=== PATIENT | male | born 1965 | race Caucasian/White ===

== ENCOUNTER 2016-07-26 13:23 | Emergency (ER) | payer OTHER ==
[~2016-07-26] VITALS: Ht 182.9 cm; Wt 145.4 kg
[2016-07-26 13:26] VITALS: BP 138/82; PULSE 74; RESP 15; O2SAT 96
--- NOTE | 2016-07-26 13:52 | ED.REPORT ---
HPI-Abd Pain M 40 and Over Date of Service July 26, 2016 ED Provider: Eula Flores MD The patient is a 52 year old male with history of a hernia, diabetes mellitus, GERD, high cholesterol, hypertension, and asthma, who presents to the emergency department complaining of diffuse abdominal pain. The patient has a known umbilical hernia that "pops out" intermittently. The hernia reduced 2 days ago but there is a "smaller bulge" that is very painful. He has also experienced difficulty defecating, constipation, nausea, vomiting with clear emesis, decreased appetite, and a cough. He was recently evaluated for bronchitis. Nursing Notes Stated Complaint: STOMACH PAIN AFTER HERNIA RETRACTED Chief Complaint: Male Abdominal Pain Nursing Notes Reviewed: Yes Allergies: Coded Allergies: trazodone (Unverified Adverse Reaction, Intermediate, highly agitated, 07/26) Scheduled PRN oxyCODONE-Acetaminophen 5-325 mg (oxyCODONE-Acetaminophen 5-325 mg) 1 Each Tablet 1-2 TAB PO Q6H PRN PRN For Pain General Time Seen by MD: 13:45 Chief Complaint Abdominal pain Hx Obtained From: Patient Arrived By: Walk-in Sudden in Onset?: No Onset Occurred: 2 days ago Symptom Duration: Since onset Progression since Onset: Constant Location: : Diffuse Quality: Painful Severity: Current: Moderate Severity: Maximum: Severe Recent Healthcare: No recent hospitalization, Recent doctor visit Similar Sx Previous: No Past Medical History Past Medical History Hernia Hypertension High cholesterol Diabetes mellitus Asthma GERD Past Surgical History Heart surgery as an Family History Noncontributory Smoking History Former Smoker Social History History of THC use Alcohol Use: Denies alcohol use Other Social History: , Local resident Ambulatory Status Independent Review of Systems Review of Systems Note: +difficulty defecating Respiratory: Reports: Non-productive cough GI: Reports: Abdominal pain, Anorexia, Constipation, Nausea, Vomiting, Denies: Rectal pain Complete sys rev & neg: except as marked. Physical Exam Initial Vital Signs Vital Signs (First) Date Time Temp Pulse Resp B/P Pulse Ox O2 Delivery O2 Flow Rate FiO2 07/26/16 13:26 36.4 74 15 138/82 96 07/26/16 16:05 Room Air Initial VS: Reviewed Head / Eyes: Atraumatic, Normocephalic, PERRL ENT: Mucous membranes moist, Conjunctiva normal, No scleral icterus Neck: Supple, Non-tender, Full range of motion Lymphatic: No lymphadenopathy Extremities: Vascular intact, Neuro intact, No swelling, No tenderness Skin: Warm, Dry, No cyanosis Neurologic: Alert, Oriented, Nonfocal Psychiatric: Mood/affect normal, Behavior normal, Normal thought content General/Constitutional: Awake, Alert Respiratory / Chest: Atraumatic, Breath sounds NL, Breath sounds = bilat, No respiratory distress, No rales, No rhonchi, No wheezing Cardiovascular: Heart rate NL, Regular rhythm, Heart sounds NL, No gallop, No murmurs, No rubs, Peripheral circulation NL Abdomen: Soft, McBurney's non-tender, No guarding, No rebound, BS normoactive, No distention, No palpable mass, No pulsatile mass He has a suprapubic umbilical hernia that is about 6x8 cm in size. The hernia is firm and quite tender to the touch. No rebound or guarding. Back: Inspection NL, Non-tender, No midline vertebral tend, No CVA tenderness Lower Extremity / Pelvis / MS: Neurologic intact, Vascular intact, No edema Interpretation & Diagnostics Lab Results Interpretation Result Diagram: 07/26/16 1420 07/26/16 1420 Test 07/26/16 14:20 07/26/16 17:51 White Blood Count 14.2th/mm3 (3.8-10.1) Red Blood Count 4.13mil/mm3 (4.40-5.80) Hemoglobin 12.6g/dL (13.8-17.2) Hematocrit 38.4% (41.0-50.0) Mean Corpuscular Volume 93.0fL (81-100) Mean Corpuscular Hemoglobin 30.5pg (27.0-35.0) Mean Corpuscular Hemoglobin Concent 32.8% (32.0-37.0) Red Cell Distribution Width 15.2% (12.3-15.4) Platelet Count 344bil/L (150-400) Neutrophils (%) (Auto) 73.2% (40-74) Lymphocytes (%) (Auto) 20.0% (14-46) Monocytes (%) (Auto) 5.7% (4-12) Eosinophils (%) (Auto) 0.6% (0-5) Basophils (%) (Auto) 0.1% (0-3) Sodium Level 139mEq/L (134-144) Potassium Level 3.9mEq/L (3.5-5.2) Chloride Level 103mEq/L (97-108) Carbon Dioxide Level 24mmol/L (18-29) Blood Urea Nitrogen 11mg/dL (6-24) Creatinine 0.76mg/dL (0.76-1.27) Estimat Glomerular Filtration Rate 115mL/min (>59) Glucose Level 102mg/dL (60-99) Calcium Level 8.5mg/dL (8.5-10.1) Magnesium Level 2.0mg/dL (1.6-2.6) Total Bilirubin 1.1mg/dL (0.0-1.2) Aspartate Amino Transf (AST/SGOT) 25U/L (0-50) Alanine Aminotransferase (ALT/SGPT) 67U/L (0-44) Alkaline Phosphatase 98U/L (25-150) Total Protein 7.1g/dL (6.4-8.4) Albumin 3.6g/dL (3.4-5.0) Lipase 24U/L (13-60) Hold Miranda Top Tube Received (Received) Hold Urine Received (Received) Lab Results Interpretation: [facility]. Chronically elevated WBC is noted ECG Interpretation Time: 14:23 Interpreted by: ED physician Normal ECG Interpretation: Normal rate, Normal sinus rhythm, No acute ischemic changes, Normal QRS, Normal axis, Normal intervals, Adequate tracing CT Abd / Pelvis Interpretation IMPRESSION: 1. Moderate-sized fat containing periumbilical hernia. Mild edema within the fat within this hernia is suggestive of an acute inflammatory process. 2. No bowel extends into the hernia. There is no bowel obstruction. 3. Free fluid within the abdomen is of uncertain origin. There is no abscess. 4. Small fat containing right inguinal hernia. 5. Small bilateral effusions and associated atelectasis. 6. Hepatic steatosis. 7. Left common iliac to common femoral artery bypass graft appears patent. Dictated by: Henok Reed M.D. on 07/26/2016 at 14:32 Study type: Abdominal CT IV contrast Interpretation / Wet Read by: Interpret - Radiologist Re-Eval/Medical Decision Med Decision/Clinical Course The patient has history of chronically elevated WBCs. Source of Hx: Old records Time of Eval: 16:14 Re-Evaluation/Progress Note: Rechecked the patient. Discussed CT results and plan for surgery consult. Time of Eval: 17:46 Re-Evaluation/Progress Note: Rechecked the patient. Discussed surgery consult with the patient. Discussed options with the patient. He would like to be discharged home and [facility] Consultation #1: Referral / Consult Name: Gonzalo Hussein MD Consulted With: Surgeon Requested Call at: 15:56 Call Returned at: 16:03 Academic Support Director: Will see patient Note: Dr. Hussein just scrubbed in for surgery and will be down around 1700 to see the patient. Consultation #2: Referral / Consult Name: Gonzalo Hussein MD Consulted With: Surgeon Call Returned at: 17:14 Note: Dr. Hussein is out of surgery and will come down and re-evaluate the patient. It will still be about another 45 minutes until he is able to come down. Consultation #3: Consulted With: Surgeon Call Returned at: 18:11 Academic Support Director: Agrees with plan Note: In ER to physically evaluate patient. Reviewed CT previously Counseled Regarding: Diagnosis, Lab results, Need for follow-up, When/why to return to ED Discharge & Departure Primary Impression: Periumbilical hernia Additional Impressions: Fat necrosis Leukocytosis Leukocytosis type: other Qualified Code: D72.828 - Other elevated white blood cell count Disposition: Home Vital Signs - All Vital Signs Date Time Temp Pulse Resp B/P Pulse Ox O2 Delivery O2 Flow Rate FiO2 07/26/16 16:05 74 18 134/77 98 Room Air 07/26/16 13:26 36.4 74 15 138/82 96 )( All Prior VS Reviewed: Yes Condition: Stable Additional Instructions: Thank you for entrusting us with your care today. Your diagnosis today is fat necrosis of an umbilical hernia. Use the Percocet as needed for your pain. Improving your pain should help with your sleep. I recommend taking 2 when you get home tonight. Do not drink alcohol, drive, or work while taking the pain medication. With all narcotics you can become constipated. Make sure to drink plenty of fluids and eat a high fiber diet. Tomorrow [facility] follow[facility] with a [facility]. We have given you a copy of your visit today along with your lab and imaging results. Please return for increased pain, fever, vomiting, or any other new or concerning symptoms. Referrals: [facility] Bowers (PCP) Scribe Attestation Portions of this note were transcribed by Rani Deng. I, Dr. Flores personally performed the history, physical exam and medical decision-making; I reviewed and confirmed the accuracy of the information in the transcribed note. Signed by: Mark Lee, 07/26/2016 at 1800. copies to: [facility] Shawna L MD July 26, 2016 13:52 Rani Deng July 26, 2016 14:00
[2016-07-26] MEDS ORDERED: 0.9% Sodium Chloride 1,000 ML IV ONE (14:03)
[2016-07-26] MEDS ORDERED: HYDROmorphone 0.5 mg/0.5 mL iSecure Syringe IVPUSH PRN (14:05)
[2016-07-26] MEDS ORDERED: Ondansetron 2 mg/mL 2 mL Inj IVPUSH PRN (14:05)
[2016-07-26 14:30] LABS: BASOPHILS % (AUTO) 0.1 % (0-3); EOSINOPHILS % (AUTO) 0.6 % (0-5); MONOCYTES % (AUTO) 5.7 % (4-12); Mean Corpuscular Hemoglobin 30.5 pg (27.0-35.0); NEUTROPHILS % (AUTO) 73.2 % (40-74); Platelet Count 344 bil/L (150-400)
--- NOTE | 2016-07-26 15:39 | DRSVH ---
PROCEDURE: CT ABDOMEN AND PELVIS WITH CONTRAST ([id number]) INDICATIONS: abdominal pain, TECHNIQUE: After the administration of oral and intravenous contrast, 5 mm thick sections acquired from the diap hragms to the symphysis. 5 mm thick coronal and sagittal reformats were performed. For radiation do se reduction, the following was used: automated exposure control, adjustment of mA and/or kV accordi ng to patient size. COMPARISON: None. FINDINGS: Image quality: Diagnostic. ABDOMEN: Lung bases: Small bilateral pleural effusions are present (right greater than left) with correspondin g mild basilar atelectasis. The heart is normal in size without a pericardial effusion. Solid organs: The liver is normal in size and noted to be hypodense when compared to the spleen, sugg esting hepatic steatosis. No focal liver lesions are evident. Gallbladder is normal in size. Bilia ry system is non-dilated. Pancreas enhances normally. No adrenal nodules. Kidneys are normal in si ze and enhancement, without hydronephrosis. Peritoneum and bowel: The stomach, duodenum, and remainder of the small bowel loops are nondilated. There is no bowel obstruction. A small amount of free fluid is seen within the abdomen, best appreci ated within the bilateral paracolic gutters (right slightly greater than left). No loculated fluid c ollections are present. No pneumoperitoneum is appreciated. There is a moderate-sized periumbilical fat-containing hernia. Small amount of fluid is extending into this hernia. There is mild correspo nding edema within the fat within the hernia Nodes and vessels: No retroperitoneal or mesenteric adenopathy. Aorta and inferior vena cava are no rmal in caliber. Bones: Age-appropriate degenerative postoperative changes of the left iliac artery are present relate d to an external iliac artery bypass graft. The proximal anastomosis of the graft is at the common l eft iliac artery and extends to the distal common femoral artery near the bifurcation. The graft gabriela ears to be patent. changes of the imaged thoracolumbar spine are present. No acute fractures or estee picious osseous lesions are evident. PELVIS: Genitourinary: Bladder wall thickness is normal. The prostate is not enlarged. Miscellaneous: There is a small right ankle hernia. No significant left in the hernias present. The re is no pelvic lymphadenopathy. A small amount of free fluid is seen within the pelvis. There is n o loculated fluid collection. No free air is evident. Bones: No suspicious bony lesions. No vertebral body compression fractures. IMPRESSION: 1. Moderate-sized fat containing periumbilical hernia. Mild edema within the fat within this hernia is suggestive of an acute inflammatory process. 2. No bowel extends into the hernia. There is no bowel obstruction. 3. Free fluid within the abdomen is of uncertain origin. There is no abscess. 4. Small fat containing right inguinal hernia. 5. Small bilateral effusions and associated atelectasis. 6. Hepatic steatosis. 7. Left common iliac to common femoral artery bypass graft appears patent. Dictated by: Henok Reed M.D. on 07/26/2016 at 14:32 Approved by: Henok Reed M.D. on 07/26/2016 at 14:37
[2016-07-26 16:05] VITALS: BP 134/77; PULSE 74; RESP 18; O2SAT 98
[2016-07-26] MEDS ORDERED: OXYC1TAB24 PO (18:10)
[2016-07-26 18:20] VITALS: BP 138/92; PULSE 76; RESP 15; O2SAT 95
== END 2016-07-26 18:15 | disposition home or self-care (01) ==
LOC: SED 13:23 → EDUNIT# 13:23 → SED 18:15
DX: K42.9 Umbilical hernia without obstruction or gangrene (principal); K65.4 Sclerosing mesenteritis; D72.828 Other elevated white blood cell count; I10 Essential (primary) hypertension; E11.9 Type 2 diabetes mellitus without complications; K21.9 Gastro-esophageal reflux disease without esophagitis; Z87.891 Personal history of nicotine dependence; Z88.8 Allergy status to other drugs, medicaments and biological substances
CPT/HCPCS: 36415; 74177; 80053; 82948; 83690; 83735; 85025; 93005; 96361; 96374; 99285; J2405; J7030; Q9967

== ENCOUNTER 2016-08-18 11:56 | Emergency (ER) | payer OTHER ==
[~2016-08-18] VITALS: Ht 182.9 cm; Wt 147.7 kg
[~2016-08-18 11:56] MED LIST: OXYC1TAB24 PO
[2016-08-18 11:57] VITALS: BP 156/99; PULSE 70; RESP 16; O2SAT 96
--- NOTE | 2016-08-18 12:03 | ED.REPORT ---
HPI-Abd Pain M Under 40 Date of Service August 18, 2016 ED Provider: The patient is a 51 year old male with history of a known hernia, GERD, hypertension, hyperlipidemia, diabetes mellitus, and asthma, who presents to the emergency department complaining of diffuse abdominal pain that has been ongoing over the last few weeks. His pain is exacerbated with movement. He also complains of severe nausea and difficulty breathing. The patient was seen previously on 07/26/16 (approx 2 weeks ago) with the same complaint. At that time he had a CT scan of his abdomen and pelvis that showed: (a moderate sized fat containing periumbilical hernia with evidence of inflammatory process within the hernia. No bowel was noted to be in the hernia. No bowel obstruction. He had free fluid in abdomen of uncertain origin. He had a small fat containing right inguinal hernia. Small bilateral effusions and associated atelectasis. Hepatic steatosis. Left common iliac to common femoral artery bypass graft appears patent.) During that visit he was evaluated by Dr. Hussein, diagnosed with umbilical hernia with fat necrosis, he was prescribed pain mediations and advised to followup with the [facility]. The patient has an appointment with surgery on August 24. His pain is unchanged from when he was previously seen. The only thing that has changed is that he has experienced difficulty breathing over the last 1.5 weeks that is related to his asthma. He is unable to lay flat due to his breathing. When changing position or exerting himself he notices increased work of breathing. He has also noticed a dry cough and wheeze. He has been using his inhaler with some relief. He has noticed about 15-20 weight gain in the last few weeks. He was on antibiotics and steroids for bronchitis about 1 month ago. He denies fever, chills or productive cough. He denies recent long periods of immobilization. Nursing Notes Stated Complaint: HERNIA Chief Complaint: Male Abdominal Pain Nursing Notes Reviewed: Yes Allergies: Coded Allergies: trazodone (Unverified Adverse Reaction, Intermediate, highly agitated, ) Scheduled Levofloxacin (Levofloxacin) 750 Mg Tablet 750 MG PO DAILY Polyethylene Glycol 3350 (Miralax) 17 Gm Powd.pack 17 GM PO DAILY Prednisone (PredniSONE) 20 Mg Tablet 40 MG PO DAILY Scheduled PRN Oxycodone (Roxicodone) 5 Mg Tablet 5 MG PO Q4H PRN PRN For Pain oxyCODONE-Acetaminophen 5-325 mg (oxyCODONE-Acetaminophen 5-325 mg) 1 Each Tablet 1-2 TAB PO Q6H PRN PRN For Pain General Time Seen by MD: 12:02 Chief Complaint Abdominal pain Hx Obtained From: Patient Arrived By: Walk-in Sudden in Onset?: No Onset Occurred: More than a week ago... Symptom Duration: Since onset Progression since Onset: Constant Location: : Diffuse Quality: Painful Severity: Current: Moderate Severity: Maximum: Severe Associated with: Reports: Nausea, Shortness of breath Pertinent Negative: Pt denies other symptoms Recent Healthcare: No recent hospitalization, Recent doctor visit, Prior workup Similar Sx Previous: Yes Past Medical History Past Medical History Hernia Hypertension High cholesterol Diabetes mellitus Asthma GERD Past Surgical History Heart surgery as an Family History Noncontributory Smoking History Former Smoker Social History History of THC use Alcohol Use: Denies alcohol use Other Social History: , Local resident Ambulatory Status Independent Review of Systems Review of Systems Note: +weight gain Constitutional: Denies: Chills, Fever Respiratory: Reports: Dyspnea on exertion, Non-productive cough, Shortness of breath, Wheezing, Denies: Prod cough, bloody, Prod cough, brown, Prod cough, clear, Prod cough , green, Prod cough, white, Prod cough, yellow GI: Reports: Abdominal pain, Nausea Complete sys rev & neg: except as marked. Physical Exam Initial Vital Signs Vital Signs (First) Date Time Temp Pulse Resp B/P Pulse Ox O2 Delivery O2 Flow Rate FiO2 08/18/16 11:57 36.8 70 16 156/99 96 Room Air Initial VS: Reviewed Head / Eyes: Atraumatic, Normocephalic, PERRL Neck: Supple, Non-tender, Full range of motion Extremities: Vascular intact, Neuro intact, No swelling, No tenderness Skin: Warm, Dry, No cyanosis Neurologic: Alert, Oriented, Nonfocal Psychiatric: Mood/affect normal, Behavior normal, Normal thought content General/Constitutional: Awake, Alert, Cooperative Respiratory / Chest: Breath sounds = bilat, No respiratory distress, No rales, No rhonchi Well healed midline surgical incision about his anterior chest. Prolonged expiratory phase with scattered wheezing. Cardiovascular: Heart rate NL, Regular rhythm, Heart sounds NL, No gallop, No murmurs, No rubs, Peripheral circulation NL Abdomen: Soft, No guarding, No rebound, BS normoactive, No distention Palpable and reducible umbilical hernia. Back: Inspection NL, Non-tender, No CVA tenderness ENT: Airway patent Mouth: Positive: Mucous membranes dry Lower Extremity / Pelvis / MS: No deformity, Neurologic intact, Vascular intact , No edema No calf swelling or tenderness. Interpretation & Diagnostics X-Ray Chest Interpretation Chest Xray Interpretation: IMPRESSION: Bilateral lower lobe pneumonia, and small bilateral pleural effusions with adjacent atelectasis. Recommend continued radiographic followup to document resolution after treatment and exclude neoplasm Dictated by: Ayan Escobar M.D. on 08/18/2016 at 13:19 Interpretation / Wet Read by: Interpret - Radiologist Re-Eval/Medical Decision Med Decision/Clinical Course The patient is a 51-year-old male with known umbilical hernia who was previously evaluated in this emergency department on 07/26/2016 who presents to the emergency department after being sent here by nurse practitioner with concern for possible small bowel obstruction. Of note, the patient states that his only concern is getting some more pain medication as he has run out and will not be seeing his surgeon [facility] the [facility] for several more days. Incidentally, he complains that he is having increasing wheezing lately and mild shortness of breath, especially when he lays flat. He feels that he is having an exacerbation of his underlying asthma and admits that he has been gaining quite a bit of weight lately as he has not been as active. Notably, he is having bowel movements, passing flatus with no increasing abdominal distention and his hernia remains easily reducible. Here in the emergency department and he is afebrile with stable vital signs and in no apparent distress. His abdominal examination is completely benign and based upon his clinical presentation and history I have very low suspicion for small bowel obstruction. While nurse practitioner noted that he had decreased bowel sounds overall clinical picture is not consistent with small bowel obstruction. My suspicion is that his decreased bowel sounds are probably due to the fact that he is taking narcotic pain medications. See no indication at this time to obtain repeat laboratory testing or CT scan of the abdomen/pelvis. He is tolerating PO and explicitly states that he has had no change in the symptoms related to his hernia or his abdominal pain. Examination does reveal scattered expiratory wheezing and I suspect that he is experiencing exacerbation of his asthma. He was treated with [id number] DuoNeb and 40 mg of IV prednisone with good effect. He is also had quite a bit of weight gain recently and is morbidly obese with history of obstructive sleep apnea. I suspect that he is expressing some degree of obesity-related hypoventilation syndrome as he reports that his shortness of breath is worse when he lays flat on his back. Pt would probably benefit from losing weight. Of note, his x-ray did show bibasilar pneumonia though this does not seem to fit the clinical picture very well as he does not report cough , fever or chills. While he may have a component of pneumonia I suspect that he also has a lot of scarring in his lung bases. That being said I will treat him with a course of levofloxacin. At this time he remains with stable vital signs and good oxygen saturation on room air. He has established appointment with surgeon and I feel that he is appropriate for discharge. He will also follow up with his primary care physician. I have prescribed an additional supply of oxycodone for pain and MiraLAX to prevent constipation. Additionally I will treat him with a 5 day course of prednisone and have advised him to use his albuterol inhaler every 2-4 hours for the next 48 hours. Prior to discharge follow-up and return precautions were reviewed in detail with the patient who verbalized understanding and agreement with the plan. The patient was discharged in stable condition. Source of Hx: Old records Re-Evaluation/Progress : Time of Eval: 13:54 Re-Evaluation/Progress Note: Rechecked the patient. Discussed plan for discharge. All questions were addressed. Counseled Regarding: Diagnosis, Lab results Patient Discharge & Departure Primary Impression: Asthma exacerbation Additional Impressions: Umbilical hernia Obstruction and gangrene presence: without obstruction or gangrene Qualified Code: K42.9 - Umbilical hernia without obstruction or gangrene Abdominal pain Abdominal location: generalized Qualified Code: R10.84 - Generalized abdominal pain Obesity hypoventilation syndrome Pneumonia Pneumonia type: due to unspecified organism Laterality: bilateral Lung location: lower lobe of lung Qualified Code: J18.9 - Pneumonia, unspecified organism Disposition: Home Discharge Condition All VS Reviewed: Yes Condition: Stable Additional Instructions: Thank you for seeking care at the emergency room. Take the full coarse of prednisone and antibiotics as directed. The antibiotics that you have been prescribed as well as the steroids can both cause ligament ruptures. You should be careful when taking these medications and avoid any activities such as jumping, running or sports. Use the inhaler with spacer every 2-4 hours as needed for the next 24-48 hours. Take the oxycodone as needed for your pain. Use the Miralax to avoid constipation. Followup with the surgeon at the [facility] as previously arrange. You should return to the ED immediately if you develop worsening pain, shortness of breath, cough, fever, chills, inability to reduce your hernia, or any new/worsening abdominal pain. Thank you for letting us partake in your care today. Narcotic Pain Medicine You have been prescribed a narcotic for pain relief. These drugs are usually combined with acetaminophen (Tylenol#3, Percocet, Darvocet, Anexsia, Vicodin) or aspirin (Empirin#3, Percodan, Synalogs-DC) for increased effect. Narcotics act on the central nervous system to reduce pain; they also impair mental alertness and physical abilities. We advise you not to drink alcohol, drive a car, or operate dangerous equipment when you are taking these drugs. You can lessen stomach irritation from your medicine by taking it with meals or a full glass of water. Common side effects of narcotics are: Nausea and vomiting, heartburn, constipation, dizziness, sleepiness, and mood changes. If you have bothersome side effects or symptoms of an allergic reaction (itching, hives, rash), stop taking your medicine and call your doctor or the emergency room right away. Please keep your narcotic medicine well out of the reach of children. Referrals: [facility] (PCP) Scribe Attestation Portions of this note were transcribed by Rani Deng. I, Dr. Sierra personally performed the history, physical exam and medical decision-making; I reviewed and confirmed the accuracy of the information in the transcribed note. Signed by: Mark Lee, 08/18/2016 at 1430. copies to: [facility] Dale Sierra MD August 18, 2016 12:03 Rani Deng August 18, 2016 12:13
[2016-08-18 12:12] VITALS: BP 166/87; PULSE 72; RESP 20; O2SAT 95
[2016-08-18] MEDS ORDERED: Albuterol-Ipratropium 3 mL Inhalation Solution NEB ONE (12:20)
[2016-08-18] MEDS ORDERED: POLY17PO6 PO (12:22)
[2016-08-18] MEDS ORDERED: OXYC-474 PO (12:22)
[2016-08-18] MEDS ORDERED: PRE20 PO (12:23)
[2016-08-18 12:35] VITALS: PULSE 69; RESP 23; O2SAT 93
[2016-08-18 12:38] VITALS: BP 159/94; PULSE 71
--- NOTE | 2016-08-18 13:27 | DRSVH ---
PROCEDURE: X-RAY CHEST, TWO VIEWS ([id number]) INDICATIONS: sob/wheezing TECHNIQUE: 2 views of the chest were acquired. COMPARISON: None. FINDINGS: Surgical changes and devices: None. Lungs and pleura: No pleural effusions or pneumothorax. Bibasilar consolidations, and small pleural effusions with adjacent atelectasis. Mediastinum: Mediastinal contours are normal. Heart size is normal. Bones and chest wall: No suspicious bony abnormalities. Soft tissues appear unremarkable. IMPRESSION: Bilateral lower lobe pneumonia, and small bilateral pleural effusions with adjacent atelectasis. Roque mmend continued radiographic followup to document resolution after treatment and exclude neoplasm Dictated by: Ayan Escobar M.D. on 08/18/2016 at 13:19 Approved by: Ayan Escobar M.D. on 08/18/2016 at 13:25
[2016-08-18] MEDS ORDERED: LEVO750T39 PO (13:43)
[2016-08-18 14:06] VITALS: BP 141/79; PULSE 93; RESP 16; O2SAT 95
== END 2016-08-18 14:09 | disposition home or self-care (01) ==
LOC: SED 11:56
DX: J45.901 Unspecified asthma with (acute) exacerbation (principal); K42.9 Umbilical hernia without obstruction or gangrene; R10.84 Generalized abdominal pain; E66.2 Morbid (severe) obesity with alveolar hypoventilation; J18.9 Pneumonia, unspecified organism; K21.9 Gastro-esophageal reflux disease without esophagitis; I10 Essential (primary) hypertension; E78.5 Hyperlipidemia, unspecified; E11.9 Type 2 diabetes mellitus without complications; Z87.891 Personal history of nicotine dependence; Z88.8 Allergy status to other drugs, medicaments and biological substances; Z68.41 Body mass index [BMI] 40.0-44.9, adult
CPT/HCPCS: 71020; 94664; 99284; J7620